=== PATIENT | male | born 1955 | race Caucasian/White ===

== ENCOUNTER 2018-03-26 08:47 | Emergency (ER) | payer OTHER ==
[2018-03-26] MEDS ORDERED: Ondansetron 4 MG/2 ML SDV IVPUSH ONE (09:06)
[2018-03-26] MEDS ORDERED: HYDROmorphone 0.5 MG/0.5 ML Syringe IVPUSH ONE ×2 (09:06→15:36)
--- NOTE | 2018-03-26 09:09 | EDM.PDOC ---
ED HPI GENERAL MEDICAL PROBLEM - General Chief Complaint: Abdominal Pain Stated Complaint: ABD PAIN FOR 3 DAYS Time Seen by Provider: 03/26/18 09:08 Source of Information: Reports: Patient History Limitations: Reports: No Limitations - History of Present Illness INITIAL COMMENTS - FREE TEXT/NARRATIVE: pt has been ill for about 3 days. He has constant lower abdomanal pain. He is nauseated. He has not been vomiting. Pt is rating the pain at a 7-8/ Duration: Hour(s): Location: Reports: Abdomen Associated Symptoms: Reports: Other (pt has had nausea. He has had periods of chills. ) Lower Abdomen Pain Score (Numeric/FACES): 5 - Related Data Allergies Allergy/AdvReac Type Severity Reaction Status Date / Time acetaminophen [From Percocet] AdvReac Nausea and Verified 09/12/15 01:47 Vomiting oxycodone HCl [From Percocet] AdvReac Nausea and Verified 09/12/15 01:47 Vomiting tetracycline AdvReac Nausea and Verified 09/12/15 01:47 Vomiting Home Meds: Home Meds Glucosamine HCl 500 mg PO DAILY 02/12/15 [History] Krill Oil/Burnett-3/Dha/Epa [Burnett-3 Krill Oil Softgel] 1 each PO DAILY 02/12/15 [ History] Multivitamin [Multiple Vitamins] 1 tab PO DAILY 02/12/15 [History] Ubidecarenone [Co Q-10] 300 mg PO DAILY 02/12/15 [History] Past Medical History Cardiovascular History: Reports: Hypertension Dermatologic History: Reports: Other (See Below) Other Dermatologic History: removed from arms, face and upper chest - Infectious Disease History Infectious Disease History: Reports: Chicken Pox - Past Surgical History GI Surgical History: Reports: Hernia Repair/Other Social & Family History - Tobacco Use Smoking Status *Q: Current Every Day Smoker Years of Tobacco use: 40 Packs/Tins Daily: 0.5 - Caffeine Use Caffeine Use: Reports: Coffee, Tea - Recreational Drug Use Recreational Drug Use: No ED ROS GENERAL - Review of Systems Review Of Systems: See Below Constitutional: Reports: Chills, Malaise, Weakness HEENT: Reports: No Symptoms Respiratory: Reports: No Symptoms Cardiovascular: Reports: No Symptoms Endocrine: Reports: No Symptoms GI/Abdominal: Reports: Abdominal Pain, Other (pt has been vomitng alot. ) : Reports: No Symptoms Musculoskeletal: Reports: No Symptoms Skin: Reports: No Symptoms ED EXAM, GI/ABD - Physical Exam Exam: See Below Text/Narrative:: pt arrived with severe mid abdomanal pain. He has been ill for 3 days. He has not eaten during that period of time. He has been having normal bms. Exam Limited By: No Limitations General Appearance: Alert, Anxious, Moderate Distress Ears: Normal TMs Nose: Normal Inspection Throat/Mouth: Normal Inspection Head: Atraumatic Neck: Normal Inspection Respiratory/Chest: No Respiratory Distress Cardiovascular: Regular Rate, Rhythm GI/Abdominal Exam: Tender, Other (pt is tender in the mid abdoman. ) (Male) Exam: Deferred Rectal (Males) Exam: Deferred Back Exam: Normal Inspection Extremities: Normal Inspection Neurological: Alert, Oriented, Normal Cognition Psychiatric: Normal Affect Course - Vital Signs Last Recorded V/S: Last Vital Signs Temp 35.9 C 03/26/18 08:58 Pulse 99 03/26/18 08:58 Resp 18 03/26/18 08:58 BP 158/107 H 03/26/18 08:58 Pulse Ox 98 03/26/18 08:58 - Orders/Labs/Meds Orders: Active Orders 24 hr Category Date Time Status Abdomen Ltd [US] Stat Exams 03/26/18 11:24 Taken Abdomen Pelvis w Cont [CT] Stat Exams 03/26/18 09:28 Taken UA W/MICROSCOPIC [URIN] Urgent Lab 03/26/18 09:25 Ordered Iopamidol [Isovue-300 (61%)] Med 03/26/18 10:00 Active 126 ml IV . DIRECTED PRN Sodium Chloride 0.9% [Normal Saline] 1,000 ml Med 03/26/18 09:15 Active IV ASDIRECTED Sodium Chloride 0.9% [Normal Saline] 1,000 ml Med 03/26/18 10:15 Active IV ASDIRECTED Sodium Chloride 0.9% [Normal Saline] 78 ml Med 03/26/18 10:00 Active IV ASDIRECTED cefTRIAXone [Rocephin] 1 gm Med 03/26/18 14:25 Active Sodium Chloride 0.9% [Normal Saline] 50 ml IV ONETIME metroNIDAZOLE/Normal Saline [Flagyl 500 MG in NS 100 ML Med 03/26/18 14:26 Active ] 500 mg Premix Bag 1 bag IV ONETIME Medication Orders Sodium Chloride (Normal Saline) 1,000 mls @ 999 mls/hr IV ASDIRECTED [facility] Last Admin: 03/26/18 09:21 Dose: 999 mls/hr Sodium Chloride (Normal Saline) 78 mls @ 3 mls/sec IV ASDIRECTED [facility] Last Admin: 03/26/18 10:22 Dose: 3 mls/sec Sodium Chloride (Normal Saline) 1,000 mls @ 999 mls/hr IV ASDIRECTED [facility] Last Admin: 03/26/18 11:31 Dose: 999 mls/hr Ceftriaxone Sodium 1 gm/ (Sodium Chloride) 50 mls @ 100 mls/hr IV ONETIME ONE Stop: 03/26/18 14:54 Metronidazole 500 mg/ Premix 100 mls @ 100 mls/hr IV ONETIME ONE Stop: 03/26/18 15:25 Iopamidol (Isovue-300 (61%)) 126 ml IV . DIRECTED PRN PRN Reason: RADIOLOGY EXAM Stop: 03/27/18 10:01 Last Admin: 03/26/18 10:22 Dose: 126 ml Labs: Laboratory Tests 03/26/18 03/26/18 03/26/18 Range/Units 09:19 09:19 09:25 WBC 10.3 (4.5-11.0) K/uL RBC 5.64 (4.30-5.90) M/uL Hgb 17.8 H (12.0-15.0) g/dL Hct 50.5 (40.0-54.0) % MCV 90 (80-98) fL MCH 32 H (27-31) pg MCHC 35 (32-36) % Plt Count 245 (150-400) K/uL Neut % (Auto) 75 H (36-66) % Lymph % (Auto) 13 L (24-44) % [place] % (Auto) 12 H (2-6) % Eos % (Auto) 0 L (2-4) % Baso % (Auto) 0 (0-1) % Sodium 128 L (140-148) mmol/L Potassium 4.0 (3.6-5.2) mmol/L Chloride 96 L (100-108) mmol/L Carbon Dioxide 26 (21-32) mmol/L Anion Gap 10.0 (5.0-14.0) mmol/L BUN 11 (7-18) mg/dL Creatinine 0.9 (0.7-1.3) mg/dL Est Cr Clr Drug Dosing 88.31 mL/min Estimated GFR (MDRD) > 60 (>60) BUN/Creatinine Ratio Not Reportable Glucose 106 (74-106) mg/dL Calcium 9.3 (8.5-10.1) mg/dL Total Bilirubin 1.2 H (0.2-1.0) mg/dL AST 20 (15-37) U/L ALT 35 (12-78) U/L Alkaline Phosphatase 78 (46-116) U/L C-Reactive Protein 2.84 H (0.0-0.3) mg/dL Total Protein 7.4 (6.4-8.2) g/dL Albumin 3.9 (3.4-5.0) g/dL Globulin 3.5 (2.3-3.5) g/dL Albumin/Globulin Ratio 1.1 L (1.2-2.2) Amylase (25-115) U/L Lipase (73-393) U/L Urine Color Yellow Urine Appearance Slightly cloudy Urine pH 6.0 (4.5-8.0) Ur Specific [place] 1.015 (1.008-1.030) Urine Protein 100 H (NEGATIVE) mg/dL Urine Glucose (UA) Normal (NEGATIVE) mg/dL Urine Ketones 15 H (NEGATIVE) mg/dL Urine Occult Blood Negative (NEGATIVE) Urine Nitrite Negative (NEGAITVE) Urine Bilirubin Small (NEGATIVE) Urine Urobilinogen 4 (NORMAL) mg/dL Ur Leukocyte Esterase Small (NEGATIVE) Urine RBC 0-5 (0-5) Urine WBC 5-10 H (0-5) Ur Epithelial Cells Few Amorphous Sediment Not seen Urine Bacteria Few Urine Mucus Few 03/26/18 Range/Units 13:34 WBC (4.5-11.0) K/uL RBC (4.30-5.90) M/uL Hgb (12.0-15.0) g/dL Hct (40.0-54.0) % MCV (80-98) fL MCH (27-31) pg MCHC (32-36) % Plt Count (150-400) K/uL Neut % (Auto) (36-66) % Lymph % (Auto) (24-44) % [place] % (Auto) (2-6) % Eos % (Auto) (2-4) % Baso % (Auto) (0-1) % Sodium (140-148) mmol/L Potassium (3.6-5.2) mmol/L Chloride (100-108) mmol/L Carbon Dioxide (21-32) mmol/L Anion Gap (5.0-14.0) mmol/L BUN (7-18) mg/dL Creatinine (0.7-1.3) mg/dL Est Cr Clr Drug Dosing mL/min Estimated GFR (MDRD) (>60) BUN/Creatinine Ratio Glucose (74-106) mg/dL Calcium (8.5-10.1) mg/dL Total Bilirubin (0.2-1.0) mg/dL AST (15-37) U/L ALT (12-78) U/L Alkaline Phosphatase (46-116) U/L C-Reactive Protein (0.0-0.3) mg/dL Total Protein (6.4-8.2) g/dL Albumin (3.4-5.0) g/dL Globulin (2.3-3.5) g/dL Albumin/Globulin Ratio (1.2-2.2) Amylase 38 (25-115) U/L Lipase 164 (73-393) U/L Urine Color Urine Appearance Urine pH (4.5-8.0) Ur Specific [place] (1.008-1.030) Urine Protein (NEGATIVE) mg/dL Urine Glucose (UA) (NEGATIVE) mg/dL Urine Ketones (NEGATIVE) mg/dL Urine Occult Blood (NEGATIVE) Urine Nitrite (NEGAITVE) Urine Bilirubin (NEGATIVE) Urine Urobilinogen (NORMAL) mg/dL Ur Leukocyte Esterase (NEGATIVE) Urine RBC (0-5) Urine WBC (0-5) Ur Epithelial Cells Amorphous Sediment Urine Bacteria Urine Mucus Meds: Medications Generic Name Dose Route Start Last Admin Trade Name Freq PRN Reason Stop Dose Admin Sodium Chloride 1,000 mls @ 999 mls/hr 03/26/18 09:15 03/26/18 09:21 Normal Saline IV 999 mls/hr ASDIRECTED JENNIFER Administration Sodium Chloride 78 mls @ 3 mls/sec 03/26/18 10:00 03/26/18 10:22 Normal Saline IV 3 mls/sec ASDIRECTED JENNIFER Administration Sodium Chloride 1,000 mls @ 999 mls/hr 03/26/18 10:15 03/26/18 11:31 Normal Saline IV 999 mls/hr ASDIRECTED JENNIFER Administration Ceftriaxone Sodium 1 gm/ 50 mls @ 100 mls/hr 03/26/18 14:25 Sodium Chloride IV 03/26/18 14:54 ONETIME ONE Metronidazole 500 mg/ Premix 100 mls @ 100 mls/hr 03/26/18 14:26 IV 03/26/18 15:25 ONETIME ONE Iopamidol 126 ml 03/26/18 10:00 03/26/18 10:22 Isovue-300 (61%) IV 03/27/18 10:01 126 ml . DIRECTED PRN Administration RADIOLOGY EXAM Discontinued Medications Generic Name Dose Route Start Last Admin Trade Name Freq PRN Reason Stop Dose Admin Hydromorphone HCl 0.5 mg 03/26/18 09:06 03/26/18 09:22 Dilaudid IVPUSH 03/26/18 09:07 0.5 mg ONETIME ONE Administration Hydromorphone HCl 1 mg 03/26/18 11:24 03/26/18 11:28 Dilaudid IVPUSH 03/26/18 11:25 1 mg ONETIME ONE Administration Hydromorphone HCl 1 mg 03/26/18 14:30 Dilaudid IVPUSH 03/26/18 14:31 ONETIME ONE Ondansetron HCl 4 mg 03/26/18 09:06 03/26/18 09:22 Zofran IVPUSH 03/26/18 09:07 4 mg ONETIME ONE Administration - Re-Assessments/Exams Free Text/Narrative Re-Assessment/Exam: 03/26/18 14:18 pt had a mildly elevated wbc. He had a elevated crp. He had the cat scan of the abdoman which showed stones in the GB and a stone in the neck of the gb. 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 He at this point needs a ercp and gastro consult. The [facility] was consulted and they do not do ERCPS and wished for him to go to [facility]. 03/26/18 14:22 Departure - Departure Time of Disposition: 14:26 Disposition: DC/Tfer to Acute Hospital 02 Condition: Fair Clinical Impression: Acute cholecystitis, Pancreatic mass - Discharge Information Referrals: PCP,None [Primary Care Provider] - Forms: ED Department Discharge Care Plan Goals: transfer to [facility]. - My Orders Last 24 Hours: My Active Orders 03/26/18 09:15 Sodium Chloride 0.9% [Normal Saline] 1,000 ml IV ASDIRECTED 03/26/18 09:25 UA W/MICROSCOPIC [URIN] Urgent 03/26/18 09:28 Abdomen Pelvis w Cont [CT] Stat 03/26/18 10:00 Iopamidol [Isovue-300 (61%)] 126 ml IV . DIRECTED PRN Sodium Chloride 0.9% [Normal Saline] 78 ml IV ASDIRECTED 03/26/18 10:15 Sodium Chloride 0.9% [Normal Saline] 1,000 ml IV ASDIRECTED 03/26/18 11:24 Abdomen Ltd [US] Stat 03/26/18 14:25 cefTRIAXone [Rocephin] 1 gm Sodium Chloride 0.9% [Normal Saline] 50 ml IV ONETIME 03/26/18 14:26 metroNIDAZOLE/Normal Saline [Flagyl 500 MG in NS 100 ML] 500 mg Premix Bag 1 bag IV ONETIME - Assessment/Plan Last 24 Hours: My Active Orders 03/26/18 09:15 Sodium Chloride 0.9% [Normal Saline] 1,000 ml IV ASDIRECTED 03/26/18 09:25 UA W/MICROSCOPIC [URIN] Urgent 03/26/18 09:28 Abdomen Pelvis w Cont [CT] Stat 03/26/18 10:00 Iopamidol [Isovue-300 (61%)] 126 ml IV . DIRECTED PRN Sodium Chloride 0.9% [Normal Saline] 78 ml IV ASDIRECTED 03/26/18 10:15 Sodium Chloride 0.9% [Normal Saline] 1,000 ml IV ASDIRECTED 03/26/18 11:24 Abdomen Ltd [US] Stat 03/26/18 14:25 cefTRIAXone [Rocephin] 1 gm Sodium Chloride 0.9% [Normal Saline] 50 ml IV ONETIME 03/26/18 14:26 metroNIDAZOLE/Normal Saline [Flagyl 500 MG in NS 100 ML] 500 mg Premix Bag 1 bag IV ONETIME
[2018-03-26] MEDS ORDERED: Sodium Chloride 0.9% 1,000 ML IV SCH ×2 (09:15→10:15)
[2018-03-26] MEDS ORDERED: Iopamidol 612 MG/ML 150 ML Bottle IV PRN (10:00)
[2018-03-26] MEDS ORDERED: HYDROmorphone 1 MG/ML Syringe IVPUSH ONE ×2 (11:24→14:30)
[2018-03-26] MEDS ORDERED: cefTRIAXone 1 GM in Sodium Chloride 0.9% 50 ML IV ONE (14:25)
[2018-03-26] MEDS ORDERED: metroNIDAZOLE/Normal Saline 500 MG in Premix Bag 1 BAG IV ONE (14:26)
[2018-03-26 15:25] VITALS: BP 167/107
== END 2018-03-26 15:41 ==
LOC: JP.ED 08:47
DX: K81.0 Acute cholecystitis (principal); K86.9 Disease of pancreas, unspecified; I10 Essential (primary) hypertension; F17.210 Nicotine dependence, cigarettes, uncomplicated; Z88.5 Allergy status to narcotic agent; Z88.1 Allergy status to other antibiotic agents; Z79.899 Other long term (current) drug therapy
CPT/HCPCS: 36415; 74177; 76705; 80053; 81001; 82150; 83690; 85025; 86140; 96361; 96365; 96368; 96375; 96376; 99285; J0696; J1170; J2405; J3490; J7030; J7050

== ENCOUNTER 2018-04-10 12:10 | Emergency (ER) | payer OTHER ==
[2018-04-10 12:23] VITALS: BP 135/94
[2018-04-10] MEDS ORDERED: fentaNYL 100 MCG/2 ML SDV IM ONE (13:06)
[2018-04-10] MEDS ORDERED: Ondansetron 4 MG Tab.DIS PO ONE (13:06)
--- NOTE | 2018-04-10 13:11 | EDM.PDOC ---
ED HPI GENERAL MEDICAL PROBLEM - General Chief Complaint: Abdominal Pain Stated Complaint: SHARP LEFT ABDOM PAIN Time Seen by Provider: 04/10/18 12:47 Source of Information: Reports: Patient, Family, Old Records, RN Notes Reviewed History Limitations: Reports: No Limitations - History of Present Illness INITIAL COMMENTS - FREE TEXT/NARRATIVE: 63-year-old gentleman presents to the emergency department today complaint of abdominal pain, he was recently evaluated here in the emergency department a couple weeks ago underwent CT scan which did show acute cholecystitis with cholelithiasis as well as pancreatic mass. He was subsequently transferred to [facility] for further evaluation underwent ERCP with biopsy which showed, interductal papillary mucinous neoplasm. This morning he had the sudden onset of abdominal pain right upper quadrant epigastric region rated pain 10 out of 10 was nauseated with the pain he states he ate last night had no difficulties other than some belching. He is scheduled for laparoscopic cholecystectomy on 17 April right lower abdomen and right flank Pain Score (Numeric/FACES): 5 - Related Data Allergies Allergy/AdvReac Type Severity Reaction Status Date / Time acetaminophen [From Percocet] AdvReac Nausea and Verified 04/10/18 12:35 Vomiting oxycodone HCl [From Percocet] AdvReac Nausea and Verified 04/10/18 12:35 Vomiting tetracycline AdvReac Nausea and Verified 04/10/18 12:35 Vomiting Home Meds: Home Meds . [Unable to Verify Home Med List] 04/10/18 [History] Past Medical History Cardiovascular History: Reports: Hypertension Gastrointestinal History: Reports: Cholelithiasis, Other (See Below) Other Gastrointestinal History: pancreatic cysts Oncologic (Cancer) History: Reports: Basal Cell Carcinoma Dermatologic History: Reports: Other (See Below) Other Dermatologic History: removed from arms, face and upper chest basal cell - Infectious Disease History Infectious Disease History: Reports: Chicken Pox - Past Surgical History GI Surgical History: Reports: Hernia Repair/Other Social & Family History - Tobacco Use Smoking Status *Q: Current Every Day Smoker Years of Tobacco use: 40 Packs/Tins Daily: 0.5 - Caffeine Use Caffeine Use: Reports: Coffee - Recreational Drug Use Recreational Drug Use: No ED ROS GENERAL - Review of Systems Review Of Systems: See Below Constitutional: Reports: No Symptoms HEENT: Reports: No Symptoms Respiratory: Reports: No Symptoms Cardiovascular: Reports: No Symptoms GI/Abdominal: Reports: Abdominal Pain, Flatus, Nausea : Reports: No Symptoms Musculoskeletal: Reports: No Symptoms Skin: Reports: No Symptoms Neurological: Reports: No Symptoms ED EXAM, GI/ABD - Physical Exam Exam: See Below Exam Limited By: No Limitations General Appearance: Alert, WD/WN, No Apparent Distress Head: Atraumatic, Normocephalic Neck: Normal Inspection, Supple, Non-Tender, Full Range of Motion Respiratory/Chest: No Respiratory Distress, Lungs Clear, Normal Breath Sounds, No Accessory Muscle Use, Chest Non-Tender Cardiovascular: Regular Rate, Rhythm, No Murmur GI/Abdominal Exam: Normal Bowel Sounds, Soft, Tender (Tender right upper quadrant) Course - Vital Signs Last Recorded V/S: Last Vital Signs Temp 95.9 F 04/10/18 12:24 Pulse 70 04/10/18 12:24 Resp 17 04/10/18 12:24 BP 135/94 H 04/10/18 12:24 Pulse Ox 98 04/10/18 12:24 - Orders/Labs/Meds Labs: Laboratory Tests 04/10/18 04/10/18 04/10/18 Range/Units 13:15 13:15 13:15 WBC 6.4 (4.5-11.0) K/uL RBC 4.98 (4.30-5.90) M/uL Hgb 15.6 H D (12.0-15.0) g/dL Hct 44.0 (40.0-54.0) % MCV 88 (80-98) fL MCH 31 (27-31) pg MCHC 36 (32-36) % Plt Count 423 H (150-400) K/uL Neut % (Auto) 70 H (36-66) % Lymph % (Auto) 17 L (24-44) % [place] % (Auto) 11 H (2-6) % Eos % (Auto) 1 L (2-4) % Baso % (Auto) 1 (0-1) % Sodium 133 L (140-148) mmol/L Potassium 4.0 (3.6-5.2) mmol/L Chloride 95 L (100-108) mmol/L Carbon Dioxide 29 (21-32) mmol/L Anion Gap 13.0 (5.0-14.0) mmol/L BUN 8 (7-18) mg/dL Creatinine 0.9 (0.8-1.3) mg/dL Est Cr Clr Drug Dosing 91.01 mL/min Estimated GFR (MDRD) > 60 (>60) Glucose 124 H (74-106) mg/dL Lactic Acid 1.6 (0.4-2.0) mmol/L Calcium 8.9 (8.5-10.1) mg/dL Total Bilirubin 1.5 H (0.2-1.0) mg/dL AST 594 H D (15-37) U/L ALT 420 H (12-78) U/L Alkaline Phosphatase 206 H D (46-116) U/L Troponin I < 0.017 (0.000-0.056) ng/mL C-Reactive Protein 0.46 H (0.0-0.3) mg/dL Total Protein 6.8 (6.4-8.2) g/dL Albumin 3.3 L (3.4-5.0) g/dL Globulin 3.5 (2.3-3.5) g/dL Albumin/Globulin Ratio 0.9 L (1.2-2.2) Meds: Medications Discontinued Medications Generic Name Dose Route Start Last Admin Trade Name Freq PRN Reason Stop Dose Admin Fentanyl 50 mcg 04/10/18 13:06 04/10/18 13:15 Sublimaze IM 04/10/18 13:07 50 mcg ONETIME ONE Administration Ondansetron HCl 4 mg 04/10/18 13:06 04/10/18 13:14 Zofran Odt PO 04/10/18 13:07 4 mg ONETIME ONE Administration Departure - Departure Time of Disposition: 13:55 Disposition: Home, Self-Care 01 Condition: Fair Clinical Impression: Acute cholecystitis - Discharge Information Referrals: PCP,None [Primary Care Provider] - Forms: ED Department Discharge Additional Instructions: Usual pain medication as needed, please keep in contact with your general surgeon, call return to the emergency department worsening of symptoms - Assessment/Plan Plan: Assessment Acuity = acute Site and laterality = cholecystitis with cholelithiasis Etiology = probable aggravation secondary to food intake Manifestations = abdominal pain, nausea Location of injury = Home Lab values = CBC unremarkable, sodium low at 133 consistent hyponatremia total bilirubin elevated 1.5 consistent hyperbilirubinemia, AST elevated at 594 ALTs elevated 5-0 consistent elevated liver enzymes, troponin was negative CRP elevated slightly at 0.46 lactic acid normal at 1.6 Plan He had good relief with combination Zofran and fentanyl talked about pain control options he is given try tramadol 50 mg by mouth 3 times a day when necessary total #15, he will be in contact with his surgeon he is scheduled for cholecystectomy on Monday. Call or return to the emergency department worsening of symptoms This note was dictated using [employer] voice recognition software please call with any questions on syntax or grammar.
== END 2018-04-10 14:30 | disposition home or self-care (01) ==
LOC: JP.ED 12:10
DX: K80.00 Calculus of gallbladder with acute cholecystitis without obstruction (principal); I10 Essential (primary) hypertension; F17.210 Nicotine dependence, cigarettes, uncomplicated; Z88.8 Allergy status to other drugs, medicaments and biological substances; Z88.1 Allergy status to other antibiotic agents
CPT/HCPCS: 36415; 80053; 83605; 84484; 85025; 86140; 96372; 99284; A9270; J3010

== ENCOUNTER 2018-04-18 15:35 | Inpatient (IN) | payer OTHER ==
[2018-04-18] MEDS ORDERED: Lactated Ringers 1,000 ML IV ONE (15:38)
[2018-04-18] MEDS ORDERED: HYDROmorphone 1 MG/ML Syringe IVPUSH ONE ×4 (15:39→18:44)
--- NOTE | 2018-04-18 15:43 | EDM.PDOC ---
ED HPI GENERAL MEDICAL PROBLEM - General Chief Complaint: Abdominal Pain Stated Complaint: surgery yesterday not doing well Time Seen by Provider: 04/18/18 15:41 Source of Information: Reports: Patient, Old Records, RN History Limitations: Reports: Other (incomplete medical records) - History of Present Illness INITIAL COMMENTS - FREE TEXT/NARRATIVE: Had lap choly at [facility] yesterday. Had abrupt onset of severe abdominal pain today. Has a recent concurrent dx of a pancreatic cyst. No nausea. Is sweaty due to the pain. Next f/u appt in [place] the first week of April. Called Dr. Garcia after the CT scan. Does not think he needs transfer(1750h) Mentions low abdominal discomfort as well, no recent BM. Tried MOM without relief. Thinks he's voiding normally. Right Middle Abdominal Pain Score (Numeric/FACES): 7 - Related Data Allergies Allergy/AdvReac Type Severity Reaction Status Date / Time oxycodone HCl [From Percocet] AdvReac Nausea and Verified 04/18/18 15:46 Vomiting tetracycline AdvReac Nausea and Verified 04/18/18 15:46 Vomiting Home Meds: Home Meds traMADol HCl [Tramadol HCl] 1 tab PO Q6H PRN 04/18/18 [History] Past Medical History Cardiovascular History: Reports: Hypertension Gastrointestinal History: Reports: Cholelithiasis, Other (See Below) Other Gastrointestinal History: pancreatic cysts Oncologic (Cancer) History: Reports: Basal Cell Carcinoma Dermatologic History: Reports: Other (See Below) Other Dermatologic History: removed from arms, face and upper chest basal cell - Infectious Disease History Infectious Disease History: Reports: Chicken Pox - Past Surgical History GI Surgical History: Reports: Hernia Repair/Other Social & Family History - Caffeine Use Caffeine Use: Reports: Coffee ED ROS GENERAL - Review of Systems Review Of Systems: See Below Constitutional: Reports: No Symptoms HEENT: Reports: No Symptoms Respiratory: Reports: No Symptoms Cardiovascular: Reports: No Symptoms GI/Abdominal: Reports: Abdominal Pain, Constipation, Decreased Appetite. Denies : Black Stool, Bloody Stool, Diarrhea, Distension, Flatus, Hematemesis, Hematochezia, Melena, Nausea, Vomiting : Reports: No Symptoms Musculoskeletal: Reports: No Symptoms Skin: Reports: No Symptoms Neurological: Reports: No Symptoms ED EXAM, GI/ABD - Physical Exam Exam: See Below Exam Limited By: No Limitations General Appearance: Alert, WD/WN, Mild Distress Eyes: Bilateral: Normal Appearance Ears: Normal External Exam, Normal Canal, Hearing Grossly Normal Nose: Normal Inspection, Normal Mucosa, No Blood Throat/Mouth: Normal Inspection, Normal Lips, Normal Oropharynx, Normal Voice Head: Atraumatic, Normocephalic Neck: Normal Inspection, Supple Respiratory/Chest: No Respiratory Distress, Lungs Clear, Normal Breath Sounds, No Accessory Muscle Use Cardiovascular: Regular Rate, Rhythm, No Edema GI/Abdominal Exam: No Distention, Tender (RUQ and suprapubic), Abnormal Bowel Sounds (decreased). No: Distended, Guarding, Rigid, Rebound, Hernia Back Exam: Normal Inspection. No: CVA Tenderness (R), CVA Tenderness (L) Extremities: Normal Inspection, Normal Range of Motion, Non-Tender, No Pedal Edema Neurological: Alert, Oriented, CN II-XII Intact, Normal Cognition, No Motor/ Sensory Deficits Psychiatric: Normal Affect, Normal Mood Skin Exam: Warm, Dry, Intact, Normal Color, No Rash Lymphatic: No Adenopathy Course - Vital Signs Text/Narrative:: Discussed situation with Dr. Garcia @ [facility] @ [facility], surgeon. He advised getting a contrasted CT scan of abd/pelvis. Bladder scan 272 ml post void Last Recorded V/S: Last Vital Signs Temp 35.5 C 04/18/18 15:46 Pulse 101 H 04/18/18 17:14 Resp 20 04/18/18 17:14 BP 168/107 H 04/18/18 17:14 Pulse Ox 84 L 04/18/18 17:14 - Orders/Labs/Meds Orders: Active Orders 24 hr Category Date Time Status Bladder Scan [RC] ASDIRECTED Care 04/18/18 16:13 Active Abdomen 1V Upright [CR] Stat Exams 04/18/18 15:40 Taken Abdomen Pelvis w Cont [CT] Stat Exams 04/18/18 16:23 Taken Iopamidol [Isovue-300 (61%)] Med 04/18/18 16:30 Active 124 ml IV . DIRECTED NS + KCl 20mEq/L [Normal Saline with 20 mEq KCl] 1,000 Med 04/18/18 17:00 Active ml IV ASDIRECTED Sodium Chloride 0.9% [Normal Saline] 80 ml Med 04/18/18 16:30 Active IV ASDIRECTED Sodium Chloride 0.9% [Saline Flush] Med 04/18/18 16:28 Active 10 ml FLUSH ASDIRECTED PRN Medication Orders Sodium Chloride (Normal Saline) 80 mls @ 3 mls/sec IV ASDIRECTED JENNIFER Last Admin: 04/18/18 16:49 Dose: 3 mls/sec Potassium Chloride/Sodium Chloride (Normal Saline With 20 Meq Kcl) 1,000 mls @ 500 mls/hr IV ASDIRECTED JENNIFER Last Admin: 04/18/18 17:28 Dose: 500 mls/hr Iopamidol (Isovue-300 (61%)) 124 ml IV . DIRECTED JENNIFER Last Admin: 04/18/18 16:49 Dose: 124 ml Sodium Chloride (Saline Flush) 10 ml FLUSH ASDIRECTED PRN PRN Reason: Keep Vein Open Last Admin: 04/18/18 16:49 Dose: 10 ml Labs: Laboratory Tests 04/18/18 04/18/18 04/18/18 Range/Units 15:39 15:39 15:39 WBC 10.8 (4.5-11.0) K/uL RBC 4.40 (4.30-5.90) M/uL Hgb 13.6 D (12.0-15.0) g/dL Hct 40.2 (40.0-54.0) % MCV 91 (80-98) fL MCH 31 (27-31) pg MCHC 34 (32-36) % Plt Count 330 (150-400) K/uL Sodium 131 L (140-148) mmol/L Potassium 3.3 L (3.6-5.2) mmol/L Chloride 94 L (100-108) mmol/L Carbon Dioxide 27 (21-32) mmol/L Anion Gap 13.3 (5.0-14.0) mmol/L BUN 7 (7-18) mg/dL Creatinine 0.9 (0.8-1.3) mg/dL Est Cr Clr Drug Dosing 90.34 mL/min Estimated GFR (MDRD) > 60 (>60) Glucose 109 H (74-106) mg/dL Calcium 9.0 (8.5-10.1) mg/dL Total Bilirubin 0.9 (0.2-1.0) mg/dL AST 34 D (15-37) U/L ALT 86 H (12-78) U/L Alkaline Phosphatase 141 H (46-116) U/L Total Protein 7.0 (6.4-8.2) g/dL Albumin 3.4 (3.4-5.0) g/dL Globulin 3.6 H (2.3-3.5) g/dL Albumin/Globulin Ratio 0.9 L (1.2-2.2) Lipase 547 H (73-393) U/L Meds: Medications Generic Name Dose Route Start Last Admin Trade Name Mahamed PRN Reason Stop Dose Admin Sodium Chloride 80 mls @ 3 mls/sec 04/18/18 16:30 04/18/18 16:49 Normal Saline IV 3 mls/sec ASDIRECTED JENNIFER Administration Potassium Chloride/Sodium Chloride 1,000 mls @ 500 mls/hr 04/18/18 17:00 17:28 Normal Saline With 20 Meq Kcl IV 500 mls/hr ASDIRECTED JENNIFER Administration Iopamidol 124 ml 04/18/18 16:30 04/18/18 16:49 Isovue-300 (61%) IV 124 ml . DIRECTED JENNIFER Administration Sodium Chloride 10 ml 04/18/18 16:28 04/18/18 16:49 Saline Flush FLUSH 10 ml ASDIRECTED PRN Administration Keep Vein Open Discontinued Medications Generic Name Dose Route Start Last Admin Trade Name Mahamed PRN Reason Stop Dose Admin Bisacodyl 10 mg 04/18/18 16:14 04/18/18 17:02 Dulcolax RECTAL 04/18/18 16:15 10 mg ONETIME ONE Administration Hydromorphone HCl 1 mg 04/18/18 15:39 04/18/18 15:49 Dilaudid IVPUSH 04/18/18 15:40 1 mg ONETIME ONE Administration Hydromorphone HCl 1 mg 04/18/18 16:04 04/18/18 16:10 Dilaudid IVPUSH 04/18/18 16:05 1 mg ONETIME ONE Administration Hydromorphone HCl 1 mg 04/18/18 16:54 04/18/18 17:01 Dilaudid IVPUSH 04/18/18 16:55 1 mg ONETIME ONE Administration Lactated Ringer's 1,000 mls @ 1,000 mls/hr 04/18/18 15:38 04/18/18 15:49 Ringers, Lactated IV 04/18/18 16:37 1,000 mls/hr BOLUS ONE Administration - Radiology Interpretation Free Text/Narrative:: Upright abdominal [id number] CT abd/pelvis with IV contrast-? retained sponge in RUQ, other findings consistent with his recent surgery. CT Results Date: 04/18/18 CT Results Time: 17:40 Departure - Departure Time of Disposition: 18:00 Disposition: Refer to Observation Condition: Fair Clinical Impression: Elevated lipase, Hypokalemia Abdominal pain Qualifiers: Abdominal location: right upper quadrant Qualified Code(s): R10.11 - Right upper quadrant pain - Discharge Information *PRESCRIPTION DRUG MONITORING PROGRAM REVIEWED*: Not Applicable *COPY OF PRESCRIPTION DRUG MONITORING REPORT IN PATIENT DONTAE: Not Applicable Referrals: PCP,None [Primary Care Provider] - Forms: ED Department Discharge - My Orders Last 24 Hours: My Active Orders 04/18/18 15:40 Abdomen 1V Upright [CR] Stat 04/18/18 16:13 Bladder Scan [RC] ASDIRECTED 04/18/18 16:23 Abdomen Pelvis w Cont [CT] Stat 04/18/18 16:28 Sodium Chloride 0.9% [Saline Flush] 10 ml FLUSH ASDIRECTED PRN 04/18/18 16:30 Iopamidol [Isovue-300 (61%)] 124 ml IV . DIRECTED Sodium Chloride 0.9% [Normal Saline] 80 ml IV ASDIRECTED 04/18/18 17:00 NS + KCl 20mEq/L [Normal Saline with 20 mEq KCl] 1,000 ml IV ASDIRECTED - Assessment/Plan Last 24 Hours: My Active Orders 04/18/18 15:40 Abdomen 1V Upright [CR] Stat 04/18/18 16:13 Bladder Scan [RC] ASDIRECTED 04/18/18 16:23 Abdomen Pelvis w Cont [CT] Stat 04/18/18 16:28 Sodium Chloride 0.9% [Saline Flush] 10 ml FLUSH ASDIRECTED PRN 04/18/18 16:30 Iopamidol [Isovue-300 (61%)] 124 ml IV . DIRECTED Sodium Chloride 0.9% [Normal Saline] 80 ml IV ASDIRECTED 04/18/18 17:00 NS + KCl 20mEq/L [Normal Saline with 20 mEq KCl] 1,000 ml IV ASDIRECTED
[2018-04-18] MEDS ORDERED: Bisacodyl 10 MG Supp RECTAL ONE (16:14)
[2018-04-18] MEDS ORDERED: Sodium Chloride 0.9% 10 ML Syringe FLUSH PRN (16:28)
[2018-04-18] MEDS ORDERED: Iopamidol 612 MG/ML 150 ML Bottle IV SCH (16:30)
[2018-04-18] MEDS ORDERED: Sodium Chloride 0.9% 80 ML IV SCH (16:30)
[2018-04-18] MEDS: NS + KCl 20mEq/L 1,000 ML IV SCH ×2 (17:28→20:02)
[2018-04-18] MEDS ORDERED: LORazepam 2 MG/ML SDV IVPUSH ONE (18:49)
[2018-04-18] MEDS ORDERED: Acetaminophen/HYDROcodone 325-5 MG Tab PO PRN (19:23)
[2018-04-18] MEDS ORDERED: LORazepam 2 MG/ML SDV IV PRN (19:23)
[2018-04-18] MEDS ORDERED: HYDROmorphone 1 MG/ML Syringe IVPUSH PRN (19:23)
[2018-04-18] MEDS ORDERED: Sodium Phosphate,Monobasic/Sodium Phosphate,Dibasic Enema 133 ML Bottle RECTAL ONE (19:23)
[2018-04-18] MEDS ORDERED: Albuterol 0.083% 2.5 MG/3 ML Neb Soln NEB PRN (19:23)
[2018-04-18] MEDS ORDERED: Lactated Ringers 1,000 ML IV SCH ×2 (19:23→20:30)
[2018-04-18] MEDS ORDERED: Ondansetron 4 MG Tab.DIS PO PRN (19:23)
[2018-04-18] MEDS ORDERED: Ondansetron 4 MG/2 ML SDV IV PRN (19:23)
[2018-04-18] MEDS ORDERED: Docusate Sodium 100 MG Cap PO PRN (19:23)
[2018-04-18] MEDS ORDERED: Piperacillin/Tazobactam 3.375 GM in Sodium Chloride 0.9% 50 ML IV SCH (20:30)
[2018-04-18] MEDS ORDERED: Pantoprazole 40 MG Vial IVPUSH SCH (21:00)
[2018-04-18 21:18] VITALS: BP 141/100
--- NOTE | 2018-04-18 21:25 | PCM.HP ---
H&P History of Present Illness - General Date of Service: 04/18/18 Admit Problem/Dx: Admission Diagnosis/Problem Admission Diagnosis/Problem Abdominal pain Source of Information: Patient, Family (Rafita), Provider, RN History Limitations: Reports: No Limitations - History of Present Illness Initial Comments - Free Text/Narative: Had lap choly at [facility] yesterday. Had abrupt onset of severe abdominal pain today. Has a recent concurrent dx of a pancreatic cyst. No nausea. Is sweaty due to the pain. Next f/u appt in [place] the first week of April. Called Dr. Garcia after the CT scan. Does not think he needs transfer(1750h) Mentions low abdominal discomfort as well, no recent BM. Tried MOM without relief. Thinks he's voiding normally. CT abd/pelvis with IV contrast-? retained sponge in RUQ, other findings consistent with his recent surgery. Onset of Symptoms: Reports: Sudden Symptom Onset Date: 04/18/18 Symptom Onset Time: 14:00 Duration of Symptoms: Reports: Hour(s):, Constant, Getting Worse, Other ( reports was at home, stood up burped, had intense pain in the right upper abdomen to the point of near fainting and cold sweats.) Location: Reports: Abdomen, Generalized Quality: Reports: Ache (low abdomen), Pressure (low abdomen), Sharp (RUQ abdomen ), Stabbing (RUQ) Severity: Severe (rate pain 10/10) Improves with: Reports: None Worsens with: Reports: None Context: Reports: Other (Surgery 2017) Associated Symptoms: Reports: Fever/Chills (cold sweats), Nausea/Vomiting, Other (acute abdomen pain) Right Middle Abdominal Pain Score (Numeric/FACES): 7 - Related Data Allergies/Adverse Reactions: Allergies Allergy/AdvReac Type Severity Reaction Status Date / Time oxycodone HCl [From Percocet] AdvReac Nausea and Verified 04/18/18 19:44 Vomiting tetracycline AdvReac Nausea and Verified 04/18/18 19:44 Vomiting Home Medications: Home Meds traMADol HCl [Tramadol HCl] 50 mg PO Q6H PRN 04/18/18 [History] Past Medical History HEENT History: Reports: None Cardiovascular History: Reports: Hypertension Gastrointestinal History: Reports: Cholelithiasis, Other (See Below) Other Gastrointestinal History: pancreatic cysts Musculoskeletal History: Reports: Back Pain, Chronic Oncologic (Cancer) History: Reports: Basal Cell Carcinoma Dermatologic History: Reports: Other (See Below) Other Dermatologic History: removed from arms, face and upper chest basal cell. basal cell carcinoma - Infectious Disease History Infectious Disease History: Reports: Chicken Pox - Past Surgical History HEENT Surgical History: Reports: Other (See Below) Other HEENT Surgeries/Procedures: eye lid lift Cardiovascular Surgical History: Reports: None GI Surgical History: Reports: Cholecystectomy, Hernia Repair/Other Other GI Surgeries/Procedures: recent donna on 04/16/18 Musculoskeletal Surgical History: Reports: None Oncologic Surgical History: Reports: None Dermatological Surgical History: Reports: None Social & Family History - Tobacco Use Smoking Status *Q: Light Tobacco Smoker Years of Tobacco use: 40 Packs/Tins Daily: 0.5 Second Hand Smoke Exposure: Yes - Caffeine Use Caffeine Use: Reports: Coffee Caffeine Use Comment: 2-4 cups daily - Alcohol Use Days Per Week of Alcohol Use: 4 Number of Drinks Per Day: 4 Total Drinks Per Week: 16 Date of Last Drink: 04/11/18 - Recreational Drug Use Recreational Drug Use: No - Living Situation & Occupation Living situation: Reports: with Significant Other 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 lives in [place] with his Girlfrient Myrna. has 4 adult children.) H&P Review of Systems - Review of Systems: Review Of Systems: See Below General: Reports: Chills, Weakness, Diaphoresis, Decreased Appetite, Other ( abdomen pain) HEENT: Reports: No Symptoms Pulmonary: Reports: Shortness of Breath Cardiovascular: Reports: No Symptoms, Blood Pressure Problem (hx of pre- existing hypertension) Gastrointestinal: Reports: Abdominal Pain, Constipation (last bowel movent 4 days ago. after fleets enema had bowel movement), Nausea, Other (Lapchole 2017) Genitourinary: Reports: No Symptoms Musculoskeletal: Reports: Shoulder Pain (left shoulder pain) Skin: Reports: Wound (surgery incisions to abdomen) Psychiatric: Reports: No Symptoms Neurological: Reports: Weakness Hematologic/Lymphatic: Reports: No Symptoms Immunologic: Reports: No Symptoms Exam - Exam Exam: See Below - Vital Signs Vital Signs: Last Vital Signs Temp 37.3 C 09/26/18 21:15 Pulse 125 H 04/18/18 21:15 Resp 32 H 04/18/18 21:15 BP 141/100 H 04/18/18 21:15 Pulse Ox 91 L 04/18/18 21:22 Weight: 84.822 kg - Exam Quality Assessment: Supplemental Oxygen General: Alert, Oriented, Moderate Distress (appear pale and in pain. ) HEENT: PERRLA, Conjunctiva Clear, EACs Clear, EOMI, Hearing Intact, Mucosa Moist & Pheba, Nares Patent, Normal Nasal Septum, Posterior Pharynx Clear, Pupils Equal, Pupils Reactive, TMs Clear Neck: Supple, Trachea Midline Lungs: Clear to Auscultation, Normal Respiratory Effort Cardiovascular: Tachycardia (rate 120's) GI/Abdominal Exam: Guarding (RUG), Tender (rates mykel 10/10), Abnormal Bowel Sounds (few bowel sound noted in mid abdomen.), Other (surgerical bandages noted to be clean, dry and intact) (Male) Exam: Normal Inspection Rectal (Males) Exam: Deferred Back Exam: Normal Inspection Extremities: No Pedal Edema, Pallor Peripheral Pulses: 2+: Radial (L), Radial (R), Dorsalis Pedis (L), Dorsalis Pedis (R) Skin: Cool, Moist Neurological: Reflexes Equal Bilateral, Strength Equal Bilateral Neuro Extensive - Mental Status: Alert, Oriented x3, Normal Mood/Affect Psychiatric: Alert, Normal Affect, Normal Mood - Patient Data Lab Results Last 24 hrs: Laboratory Results - last 24 hr 04/18/18 04/18/18 04/18/18 Range/Units 15:39 15:39 15:39 WBC 10.8 (4.5-11.0) K/uL RBC 4.40 (4.30-5.90) M/uL Hgb 13.6 D (12.0-15.0) g/dL Hct 40.2 (40.0-54.0) % MCV 91 (80-98) fL MCH 31 (27-31) pg MCHC 34 (32-36) % Plt Count 330 (150-400) K/uL Neut % (Auto) (36-66) % Lymph % (Auto) (24-44) % [place] % (Auto) (2-6) % Eos % (Auto) (2-4) % Baso % (Auto) (0-1) % Sodium 131 L (140-148) mmol/L Potassium 3.3 L (3.6-5.2) mmol/L Chloride 94 L (100-108) mmol/L Carbon Dioxide 27 (21-32) mmol/L Anion Gap 13.3 (5.0-14.0) mmol/L BUN 7 (7-18) mg/dL Creatinine 0.9 (0.8-1.3) mg/dL Est Cr Clr Drug Dosing 90.34 mL/min Estimated GFR (MDRD) > 60 (>60) Glucose 109 H (74-106) mg/dL Lactic Acid (0.4-2.0) mmol/L Calcium 9.0 (8.5-10.1) mg/dL Total Bilirubin 0.9 (0.2-1.0) mg/dL AST 34 D (15-37) U/L ALT 86 H (12-78) U/L Alkaline Phosphatase 141 H (46-116) U/L Total Protein 7.0 (6.4-8.2) g/dL Albumin 3.4 (3.4-5.0) g/dL Globulin 3.6 H (2.3-3.5) g/dL Albumin/Globulin Ratio 0.9 L (1.2-2.2) Lipase 547 H (73-393) U/L 04/18/18 04/18/18 04/18/18 Range/Units 19:40 20:43 20:43 WBC 20.2 H (4.5-11.0) K/uL RBC 4.41 (4.30-5.90) M/uL Hgb 13.7 (12.0-15.0) g/dL Hct 40.6 (40.0-54.0) % MCV 92 (80-98) fL MCH 31 (27-31) pg MCHC 34 (32-36) % Plt Count 351 (150-400) K/uL Neut % (Auto) 89 H (36-66) % Lymph % (Auto) 4 L (24-44) % [place] % (Auto) 7 H (2-6) % Eos % (Auto) 0 L (2-4) % Baso % (Auto) 0 (0-1) % Sodium 132 L (140-148) mmol/L Potassium 4.1 (3.6-5.2) mmol/L Chloride 94 L (100-108) mmol/L Carbon Dioxide 28 (21-32) mmol/L Anion Gap 14.1 H (5.0-14.0) mmol/L BUN 7 (7-18) mg/dL Creatinine 0.9 (0.8-1.3) mg/dL Est Cr Clr Drug Dosing 91.01 mL/min Estimated GFR (MDRD) > 60 (>60) Glucose 127 H (74-106) mg/dL Lactic Acid 3.3 H (0.4-2.0) mmol/L Calcium 8.7 (8.5-10.1) mg/dL Total Bilirubin 1.3 H (0.2-1.0) mg/dL AST 32 (15-37) U/L ALT 80 H (12-78) U/L Alkaline Phosphatase 133 H (46-116) U/L Total Protein 6.9 (6.4-8.2) g/dL Albumin 3.3 L (3.4-5.0) g/dL Globulin 3.6 H (2.3-3.5) g/dL Albumin/Globulin Ratio 0.9 L (1.2-2.2) Lipase (73-393) U/L Result Diagrams: 04/18/18 20:43 04/18/18 20:43 - Problem List (1) Abdominal pain SNOMED Code(s): 90045096 ICD Code: R10.9 - UNSPECIFIED ABDOMINAL PAIN Status: Acute Current Visit : Yes Qualifiers: Abdominal location: right lower quadrant Qualified Code(s): R10.31 - Right lower quadrant pain (2) Post-operative pain SNOMED Code(s): 914178548 ICD Code: G89.18 - OTHER ACUTE POSTPROCEDURAL PAIN Status: Acute Current Visit: Yes Problem List Initiated/Reviewed/Updated: Yes Orders Last 24hrs: Active Orders 24 hr Category Date Time Status Bladder Scan [RC] ASDIRECTED Care 04/18/18 16:13 Active Cardiac Monitoring [RC] CONTINUOUS Care 04/18/18 19:23 Active Intake and Output [RC] QSHIFT Care 04/18/18 19:23 Active Notify Provider Vital Signs [RC] ASDIRECTED Care 04/18/18 19:23 Active Oxygen Therapy [RC] PRN Care 04/18/18 19:23 Active Pulse Oximetry [RC] CONTINUOUS Care 04/18/18 19:23 Active RT Aerosol Therapy [RC] ASDIRECTED Care 04/18/18 19:23 Active Up ad Deborah [RC] ASDIRECTED Care 04/18/18 19:23 Active VTE/DVT Education [RC] Per Unit Routine Care 04/18/18 19:23 Active Vital Signs [RC] Q30M Care 04/18/18 20:39 Active Vital Signs [RC] Q4H Care 04/18/18 19:23 Active Consult to Spiritual Care [CONS] Routine Cons 04/18/18 19:23 Active Clear Liquid Diet [DIET] Diet 04/18/18 Dinner Active Abdomen 1V Upright [CR] Stat Exams 04/18/18 15:40 Taken Abdomen Pelvis w Cont [CT] Stat Exams 04/18/18 16:23 Taken CBC WITH AUTO DIFF [HEME] AM Lab 04/19/18 05:11 Ordered COMPREHENSIVE METABOLIC PN,CMP [CHEM] AM Lab 04/19/18 05:11 Ordered LIPASE [CHEM] Timed Lab 04/19/18 05:10 Ordered Acetaminophen/HYDROcodone [[place] 325-5 MG] Med 04/18/18 19:23 Active 2 tab PO Q4H PRN Albuterol [Proventil Neb Soln] Med 04/18/18 19:23 Active 2.5 mg NEB Q4H PRN Docusate Sodium [Colace] Med 04/18/18 19:23 Active 100 mg PO BID PRN HYDROmorphone [Dilaudid] Med 04/18/18 19:23 Active 1 mg IVPUSH Q2H PRN LORazepam [Ativan] Med 04/18/18 19:23 Active 1 mg IV Q6H PRN Lactated Ringers [Ringers, Lactated] 1,000 ml Med 04/18/18 19:23 Active IV ASDIRECTED Lactated Ringers [Ringers, Lactated] 1,000 ml Med 04/18/18 20:30 Active IV ASDIRECTED NS + KCl 20mEq/L [Normal Saline with 20 mEq KCl] 1,000 Med 04/18/18 17:00 Active ml IV ASDIRECTED Ondansetron [Zofran ODT] Med 04/18/18 19:23 Active 4 mg PO Q6H PRN Ondansetron [Zofran] Med 04/18/18 19:23 Active 4 mg IV Q4H PRN Pantoprazole [ProTONIX IV] Med 04/18/18 21:00 Active 40 mg IVPUSH BEDTIME Piperacillin/Tazobactam [Zosyn] 3.375 gm Med 04/18/18 20:30 Active Sodium Chloride 0.9% [Normal Saline] 50 ml IV Q6H Sodium Chloride 0.9% [Normal Saline] 80 ml Med 04/18/18 16:30 Active IV ASDIRECTED Sequential Compression Device [OM.PC] Per Unit Routine Oth 04/18/18 19:23 Ordered Resuscitation Status Routine Resus Stat 04/18/18 19:01 Ordered Medication Orders Hydrocodone Bitart/Acetaminophen ([place] 325-5 Mg) 2 tab PO Q4H PRN PRN Reason: Pain (moderate 4-6) Last Admin: 04/18/18 20:21 Dose: 2 tab Albuterol (Proventil Neb Soln) 2.5 mg NEB Q4H PRN PRN Reason: Shortness Of Breath/wheezing Last Admin: 04/18/18 20:07 Dose: 2.5 mg Docusate Sodium (Colace) 100 mg PO BID PRN PRN Reason: Constipation Last Admin: 04/18/18 20:07 Dose: 100 mg Hydromorphone HCl (Dilaudid) 1 mg IVPUSH Q2H PRN PRN Reason: Pain Last Admin: 04/18/18 21:12 Dose: 1 mg Sodium Chloride (Normal Saline) 80 mls @ 3 mls/sec IV ASDIRECTED JENNIFER Last Admin: 04/18/18 16:49 Dose: 3 mls/sec Potassium Chloride/Sodium Chloride (Normal Saline With 20 Meq Kcl) 1,000 mls @ 500 mls/hr IV ASDIRECTED JENNIFER Last Admin: 04/18/18 20:02 Dose: 500 mls/hr Infusion: 04/18/18 19:28 Dose: 500 mls/hr Admin: 04/18/18 17:28 Dose: 500 mls/hr Lactated Ringer's (Ringers, Lactated) 1,000 mls @ 150 mls/hr IV ASDIRECTED JENNIFER Last Admin: 04/18/18 19:42 Dose: 150 mls/hr Lactated Ringer's (Ringers, Lactated) 1,000 mls @ 999 mls/hr IV ASDIRECTED [facility] Piperacillin Sod/Tazobactam (Sod 3.375 gm/ Sodium Chloride) 50 mls @ 100 mls/ hr IV Q6H [facility] Last Admin: 04/18/18 21:09 Dose: 100 mls/hr Lorazepam (Ativan) 1 mg IV Q6H PRN PRN Reason: Nausea/Vomiting Ondansetron HCl (Zofran Odt) 4 mg PO Q6H PRN PRN Reason: Nausea able to take PO Ondansetron HCl (Zofran) 4 mg IV Q4H PRN PRN Reason: Nausea/Vomiting Last Admin: 04/18/18 20:06 Dose: 4 mg Pantoprazole Sodium (Protonix Iv) 40 mg IVPUSH BEDTIME [facility] Last Admin: 04/18/18 20:06 Dose: 40 mg Assessment/Plan Comment:: Assessment/Plan Comment:: ASSESSMENT / PLAN This is a 63 year old male who arrived at the ER at 3:35pm today. He reports has surgery on Monday for Lap donna, he was discharge to home, he was doing well until 2 :00PM today, he got up burped and had intense stabbing pain in the right upper abdomen, he broke out in a cold sweat and nearly fainted from the pain. He waited at home for an hour for the pain to go away. In ER he has CT scan of abdomen pelvis which was abnormal. CBC normal, WBC 10.8 and hgb 13.6, chemistries, elevated lipase. ER MD consulted with Orly Jaffe, advised to admit to hospital for overnight monitoring and pain control Acute Abdominal Pain, status post surgery 04/16/18 -Admit to [address] [place] [address] for further monitoring -IV Fluids for rehydration LR at 150 mL per hour -IV Dilaudid for pain control -Advise to notify nurses of any fever or worsen pain -And a.m. labs: CBC, BMP,, Lipase Tobacco Dependence -declines patch Maintenance issues -Orders home meds: ordered -Nutrition: clear liquid diet -Smith catheter not indicated at this time -DVT: SCD -PPI; IV Protonix 40mg daily -consult Spiritual CODE STATUS: FULL Admission status: Admit to [address] [place] [address] Admission justification. This patient will be admitted for inpatient services and is medically appropriate meeting medical necessity for inpatient admission as outlined in my documentation. I reasonably expect the patient will require inpatient services that span. Time over 2 midnights. I reasonably expect this patient to be discharged or transferred within 96 hours after admission to the critical access hospital. Disposition: home Primary care provider: [facility] Hospitalist: Dr. Juarez
--- NOTE | 2018-04-18 21:54 | PCM.SN ---
- Free Text/Narrative Note: Mr. Vee condition quickly deteriorated upon arrival to 2 nd floor Med Surg unit. He has increased pulse 130's, resp rate 30's, oxygen sats at 90% with 3 l per NC, blood pressure at 154/92. pain increasing dispite Dilaudid. very pale, sweating, Hgb stable at 13.6, WBC increased to 20.8, lactic acid [facility], will accept for admission for further care and treatment will be transported via [facility] ambulance to [place], [place]
--- NOTE | 2018-04-19 08:37 | CR ---
Abdomen 1V Upright CLINICAL HISTORY: Postoperative abdominal pain FINDINGS: Small intestinal configuration is nonacute. There is moderate retained the stool in the col on, greater in the right. No free air is seen. There are surgical clips in the right upper quadrant. IMPRESSION: Nonacute intestinal gas pattern Moderate retained stool
--- NOTE | 2018-04-19 16:01 | PCM.DCSUM1 ---
Discharge Summary - Hospital Course Brief History: 63-year-old male with laparoscopic cholecystectomy completed the day prior who presented with severe right upper quadrant abdominal pain. He was admitted for pain control Diagnosis: Stroke: No - Discharge Data Discharge Date: 04/18/18 Discharge Disposition: DC/Tfer to [facility] Condition: Serious - Discharge Diagnosis/Problem(s) (1) Right upper quadrant abdominal pain SNOMED Code(s): 108063195 ICD Code: R10.11 - RIGHT UPPER QUADRANT PAIN Status: Acute (2) Status post cholecystectomy SNOMED Code(s): 449771942, 03034128, 281005524 ICD Code: Z90.49 - ACQUIRED ABSENCE OF OTHER SPECIFIED PARTS OF DIGESTIVE TRACT Status: Acute (3) Shock SNOMED Code(s): 06123675 ICD Code: R57.9 - SHOCK, UNSPECIFIED Status: Acute Problem Details: Unclear if septic or circulatory shock at the time of discharge - Patient Summary/Data Consults: Consultations 04/18/18 19:23 Consult to Spiritual Care [CONS] Routine Hospital Course: Bala presented to the emergency room with severe right upper quadrant abdominal pain the day after having a laparoscopic cholecystectomy at [facility]. Workup in the emergency room did not reveal a specific cause for his abdominal pain but a CT scan did note some fluid in the right upper quadrant/ gallbladder fossa. He was admitted to the hospital for pain control. Shortly after admission to the hospital he is developed progressive tachycardia as well as a trended down and his blood pressure. He had increasing pain in his right upper quadrant. There was concern for acute surgical issue so [facility] was contacted. He received IV fluid boluses as well as IV antibiotics and then was transferred via ambulance to [facility] for evaluation by either surgical team. - Patient Instructions Diet: NPO - Discharge Plan *PRESCRIPTION DRUG MONITORING PROGRAM REVIEWED*: Not Applicable *COPY OF PRESCRIPTION DRUG MONITORING REPORT IN PATIENT DONTAE: Not Applicable Home Medications: Home Meds traMADol HCl [Tramadol HCl] 50 mg PO Q6H PRN 04/18/18 [History] Forms: ED Department Discharge Referrals: PCP,None [Primary Care Provider] - - Discharge Summary/Plan Comment DC Time >30 min.: Yes (60 - transfer to acute Hospital) - Patient Data Vitals - Most Recent: Last Vital Signs Temp 37.3 C 04/18/18 21:15 Pulse 125 H 04/18/18 21:15 Resp 32 H 04/18/18 21:15 BP 141/100 H 04/18/18 21:15 Pulse Ox 91 L 04/18/18 21:22 Weight - Most Recent: 84.822 kg Lab Results - Last 24 hrs: Laboratory Results - last 24 hr 04/18/18 04/18/18 04/18/18 Range/Units 15:39 15:39 19:40 WBC (4.5-11.0) K/uL RBC (4.30-5.90) M/uL Hgb (12.0-15.0) g/dL Hct (40.0-54.0) % MCV (80-98) fL MCH (27-31) pg MCHC (32-36) % Plt Count (150-400) K/uL Neut % (Auto) (36-66) % Lymph % (Auto) (24-44) % Sutter % (Auto) (2-6) % Eos % (Auto) (2-4) % Baso % (Auto) (0-1) % Sodium 131 L (140-148) mmol/L Potassium 3.3 L (3.6-5.2) mmol/L Chloride 94 L (100-108) mmol/L Carbon Dioxide 27 (21-32) mmol/L Anion Gap 13.3 (5.0-14.0) mmol/L BUN 7 (7-18) mg/dL Creatinine 0.9 (0.8-1.3) mg/dL Est Cr Clr Drug Dosing 90.34 mL/min Estimated GFR (MDRD) > 60 (>60) Glucose 109 H (74-106) mg/dL Lactic Acid 3.3 H (0.4-2.0) mmol/L Calcium 9.0 (8.5-10.1) mg/dL Total Bilirubin 0.9 (0.2-1.0) mg/dL AST 34 D (15-37) U/L ALT 86 H (12-78) U/L Alkaline Phosphatase 141 H (46-116) U/L Total Protein 7.0 (6.4-8.2) g/dL Albumin 3.4 (3.4-5.0) g/dL Globulin 3.6 H (2.3-3.5) g/dL Albumin/Globulin Ratio 0.9 L (1.2-2.2) Lipase 547 H (73-393) U/L 04/18/18 04/18/18 Range/Units 20:43 20:43 WBC 20.2 H (4.5-11.0) K/uL RBC 4.41 (4.30-5.90) M/uL Hgb 13.7 (12.0-15.0) g/dL Hct 40.6 (40.0-54.0) % MCV 92 (80-98) fL MCH 31 (27-31) pg MCHC 34 (32-36) % Plt Count 351 (150-400) K/uL Neut % (Auto) 89 H (36-66) % Lymph % (Auto) 4 L (24-44) % Sutter % (Auto) 7 H (2-6) % Eos % (Auto) 0 L (2-4) % Baso % (Auto) 0 (0-1) % Sodium 132 L (140-148) mmol/L Potassium 4.1 (3.6-5.2) mmol/L Chloride 94 L (100-108) mmol/L Carbon Dioxide 28 (21-32) mmol/L Anion Gap 14.1 H (5.0-14.0) mmol/L BUN 7 (7-18) mg/dL Creatinine 0.9 (0.8-1.3) mg/dL Est Cr Clr Drug Dosing 91.01 mL/min Estimated GFR (MDRD) > 60 (>60) Glucose 127 H (74-106) mg/dL Lactic Acid (0.4-2.0) mmol/L Calcium 8.7 (8.5-10.1) mg/dL Total Bilirubin 1.3 H (0.2-1.0) mg/dL AST 32 (15-37) U/L ALT 80 H (12-78) U/L Alkaline Phosphatase 133 H (46-116) U/L Total Protein 6.9 (6.4-8.2) g/dL Albumin 3.3 L (3.4-5.0) g/dL Globulin 3.6 H (2.3-3.5) g/dL Albumin/Globulin Ratio 0.9 L (1.2-2.2) Lipase (73-393) U/L Med Orders - Current: Current Medications Discontinued Medications Hydrocodone Bitart/Acetaminophen ([place] 325-5 Mg) 2 tab PO Q4H PRN PRN Reason: Pain (moderate 4-6) Last Admin: 04/18/18 20:21 Dose: 2 tab Albuterol (Proventil Neb Soln) 2.5 mg NEB Q4H PRN PRN Reason: Shortness Of Breath/wheezing Last Admin: 04/18/18 20:07 Dose: 2.5 mg Bisacodyl (Dulcolax) 10 mg RECTAL ONETIME ONE Stop: 04/18/18 16:15 Last Admin: 04/18/18 17:02 Dose: 10 mg Docusate Sodium (Colace) 100 mg PO BID PRN PRN Reason: Constipation Last Admin: 04/18/18 20:07 Dose: 100 mg Hydromorphone HCl (Dilaudid) 1 mg IVPUSH ONETIME ONE Stop: 04/18/18 15:40 Last Admin: 04/18/18 15:49 Dose: 1 mg Hydromorphone HCl (Dilaudid) 1 mg IVPUSH ONETIME ONE Stop: 04/18/18 16:05 Last Admin: 04/18/18 16:10 Dose: 1 mg Hydromorphone HCl (Dilaudid) 1 mg IVPUSH ONETIME ONE Stop: 04/18/18 16:55 Last Admin: 04/18/18 17:01 Dose: 1 mg Hydromorphone HCl (Dilaudid) 1 mg IVPUSH ONETIME ONE Stop: 04/18/18 18:45 Last Admin: 04/18/18 19:03 Dose: 1 mg Hydromorphone HCl (Dilaudid) 1 mg IVPUSH Q2H PRN PRN Reason: Pain Last Admin: 04/18/18 21:12 Dose: 1 mg Lactated Ringer's (Ringers, Lactated) 1,000 mls @ 1,000 mls/hr IV BOLUS ONE Stop: 04/18/18 16:37 Last Admin: 04/18/18 15:49 Dose: 1,000 mls/hr Sodium Chloride (Normal Saline) 80 mls @ 3 mls/sec IV ASDIRECTED JENNIFER Last Admin: 04/18/18 16:49 Dose: 3 mls/sec Potassium Chloride/Sodium Chloride (Normal Saline With 20 Meq Kcl) 1,000 mls @ 500 mls/hr IV ASDIRECTED [facility] Last Admin: 04/18/18 20:02 Dose: 500 mls/hr Lactated Ringer's (Ringers, Lactated) 1,000 mls @ 150 mls/hr IV ASDIRECTED [facility] Last Admin: 04/18/18 19:42 Dose: 150 mls/hr Lactated Ringer's (Ringers, Lactated) 1,000 mls @ 999 mls/hr IV ASDIRECTED [facility] Piperacillin Sod/Tazobactam (Sod 3.375 gm/ Sodium Chloride) 50 mls @ 100 mls/ hr IV Q6H [facility] Last Admin: 04/18/18 21:09 Dose: 100 mls/hr Iopamidol (Isovue-300 (61%)) 124 ml IV . DIRECTED [facility] Last Admin: 04/18/18 16:49 Dose: 124 ml Lorazepam (Ativan) 0.5 mg IVPUSH ONETIME ONE Stop: 04/18/18 18:50 Last Admin: 04/18/18 19:00 Dose: 0.5 mg Lorazepam (Ativan) 1 mg IV Q6H PRN PRN Reason: Nausea/Vomiting Ondansetron HCl (Zofran Odt) 4 mg PO Q6H PRN PRN Reason: Nausea able to take PO Ondansetron HCl (Zofran) 4 mg IV Q4H PRN PRN Reason: Nausea/Vomiting Last Admin: 04/18/18 20:06 Dose: 4 mg Pantoprazole Sodium (Protonix Iv) 40 mg IVPUSH BEDTIME [facility] Last Admin: 04/18/18 20:06 Dose: 40 mg Sodium Biphosphate/Sodium Phosphate (Fleet Enema) 133 ml RECTAL ONETIME ONE Stop: 04/18/18 19:24 Last Admin: 04/18/18 20:06 Dose: 133 ml Sodium Chloride (Saline Flush) 10 ml FLUSH ASDIRECTED PRN PRN Reason: Keep Vein Open Last Admin: 04/18/18 16:49 Dose: 10 ml
== END 2018-04-18 21:49 | DRG 948 ==
LOC: JP.ED 15:35 → JP.MS 18:59
PROVIDERS: ADMIT Internal Medicine; ATTEND Internal Medicine
DX: G89.18 Other acute postprocedural pain (principal); K86.2 Cyst of pancreas; E87.6 Hypokalemia; R74.8 Abnormal levels of other serum enzymes; F17.210 Nicotine dependence, cigarettes, uncomplicated; Z98.890 Other specified postprocedural states; Z85.828 Personal history of other malignant neoplasm of skin; Z90.49 Acquired absence of other specified parts of digestive tract; Z88.1 Allergy status to other antibiotic agents; Z88.5 Allergy status to narcotic agent
CPT/HCPCS: 36415; 74018; 74018-26; 74177; 80053; 83605; 83690; 85025; 85027; 94640; 94762; A9270-GY; C9113; J1170; J2060; J2405; J2543; J3480; J7030; J7050; J7120

== ENCOUNTER 2023-05-16 06:54 | Day surgery (SDC) | payer OTHER ==
[~2023-05-16 06:54] MED LIST: Bupivacaine 0.5% 50 ML MDV ONE; Bupivacaine 0.5%/EPINEPHrine 1:200,000 50 ML MDV ONE; Lidocaine 1% with EPINEPHrine 1:100,000 50 ML MDV ONE
[2023-05-16] MEDS ORDERED: Celecoxib 200 MG Cap PO PRN (07:30)
[2023-05-16] MEDS ORDERED: Meropenem 500 MG SDV ONE (07:53)
[2023-05-16] MEDS ORDERED: Dextrose 5%-Lactated Ringers 1,000 ML IV SCH (08:00)
[2023-05-16] MEDS ORDERED: ceFAZolin 2 GM in Premix Bag 1 BAG IV ONE (08:30)
[2023-05-16] MEDS ORDERED: Midazolam 1 MG/ML 2 ML SDV ONE (09:44)
[2023-05-16] MEDS ORDERED: fentaNYL 100 MCG/2 ML SDV ONE ×2 (09:44→10:55)
[2023-05-16] MEDS ORDERED: Propofol 200 MG/20 ML SDV ONE ×3 (09:44→11:16)
[2023-05-16] MEDS ORDERED: Linezolid 600 MG/300 ML Premix Bag IRR ONE (12:00)
[2023-05-16] MEDS ORDERED: Lactated Ringers 1,000 ML ONE (12:01)
[2023-05-16] MEDS ORDERED: oxyCODONE 5 MG Tab PO PRN (12:54)
[2023-05-16 13:33] VITALS: BP 98/62; PULSE 50
== END 2023-05-16 13:53 | disposition home or self-care (01) ==
LOC: JP.SDS 06:54
PROVIDERS: ATTEND Surgery
DX: K40.30 Unilateral inguinal hernia, with obstruction, without gangrene, not specified as recurrent (principal); E78.5 Hyperlipidemia, unspecified; F17.200 Nicotine dependence, unspecified, uncomplicated; F10.90 Alcohol use, unspecified, uncomplicated; Z88.5 Allergy status to narcotic agent; Z88.8 Allergy status to other drugs, medicaments and biological substances
CPT/HCPCS: 49507; 64772; 88302; 88304; A9270; C1713; C1781; J0131; J0690; J2020; J2250; J2704; J3010; J3490; J7120; J7121; J2185